=== PATIENT | female | born 1980 | race Caucasian/White ===

== ENCOUNTER 2022-03-17 12:04 | Emergency (ER) | payer OTHER ==
[~2022-03-17] VITALS: Ht 149.9 cm; Wt 93.0 kg
[2022-03-17] MEDS ORDERED: LOSARTAN POTASS50 MG (12:17)
[2022-03-17] MEDS ORDERED: CLARITIN10 M1 (12:18)
[2022-03-17] MEDS ORDERED: MONTELUKAST SODI4 M1 (12:18)
[2022-03-17] MEDS ORDERED: FLONASE SENSIM5.9 ML (12:19)
[2022-03-17] MEDS ORDERED: WIXELA 100-501 EACH (12:19)
[2022-03-17] MEDS ORDERED: VITAMIN D310 MCG/1 M PO (12:21)
== END 2022-03-17 20:10 | disposition home or self-care (01) ==
LOC: ER 12:04
DX: R10.9 Unspecified abdominal pain (principal); J45.909 Unspecified asthma, uncomplicated; I10 Essential (primary) hypertension